=== PATIENT | female | born 1945 | race Caucasian/White ===

== ENCOUNTER 2017-06-16 05:51 | Day surgery (SDC) | payer MEDICARE, SELFPAY ==
[2017-06-16] VITALS (7 sets, daily range): BP systolic 119–139; BP diastolic 56–88; PULSE 73–85; RESP 16; TEMP 36.6–37.1; O2SAT 95–99; BMI 30.9
--- NOTE | 2017-06-16 08:01 | PCM.OPRPT ---
Problem List (1) Nausea and vomiting Status: Acute Qualifiers: Vomiting type: unspecified Vomiting Intractability: unspecified Qualified Code(s): R11.2 - Nausea with vomiting, unspecified (2) History of colonic polyps Status: Acute (3) Epigastric pain Status: Acute Report of Operation Date of Procedure: 06/16/17 Pre-Operative Diagnosis: r11.2 nausea and vomiting. Z86.010 personal history of colonic polyps. R10.13 epigastric abdominal pain Post-Operative Diagnosis: same Surgery/Procedure Performed:: 83283 esophagogastroduodenoscopy. 80500 colonoscopy Type of Anesthesia:: MAC Anesthesiologist: Geovany Leach Description of Procedure: Patient was brought into the endoscopy suite. Back of her throat was sprayed with Cetacaine spray. A bite-block was placed. She was placed in the left lateral decubitus position. She was given graded anesthesia. The scope was inserted in the back of the oropharynx and directed down through the esophagus into the stomach and into the duodenum without difficulty. Operative findings: 1. Duodenum: Normal appearance no mass lesions no ulcerations. 2. Stomach: Normal appearance no mass lesions no ulcerations mucosal all look normal. 3. Esophagus: Normal appearance no signs of Franz's esophagus she has a small hiatal hernia mucosal all look normal here. Colonoscope was inserted into the rectum. The scope was directed through the sigmoid colon, descending colon, transverse colon, ascending colon, to the cecum. She was given an amp of glucagon. Operative findings: 1. Cecum: Normal appearance no mass lesions normal ileocecal valve. 2. Ascending colon: Normal appearance no mass lesions. 3. Transverse colon: Normal appearance no mass lesions. 4. Descending colon: Normal appearance no mass lesions 5. Sigmoid colon: Normal appearance scattered diverticuli identified. 6. Rectum: Normal appearance no mass lesions retroflexion did show some internal hemorrhoids scope was withdrawn she had external hemorrhoids but no masses within her anus. She will need another colonoscopy in 10 years. With regards to her nausea vomiting she more likely will need to have a gastric emptying study to see if things are leaving the stomach appropriately. - Admit VTE Documentation VTE Present on Admission: No VTE Mechan Device Prophylaxis: None VTE Pharm Prophylaxis ordered?: No Reason prophylaxis not ordered:: Treatment Not Indicated
== END 2017-06-16 08:39 | disposition home or self-care (01) ==
LOC: EN 05:51 → AC 05:52
PROVIDERS: Family Provider Internal Medicine; PCP Internal Medicine; Visit Provider Surgery
PROC: 0DJD8ZZ Inspection of Lower Intestinal Tract, Via Natural or Artificial Opening Endoscopic (ICD-10-PCS; CPT 45378; principal; 2017-06-16 06:55)
DX: K44.9 Diaphragmatic hernia without obstruction or gangrene (principal); K57.30 Diverticulosis of large intestine without perforation or abscess without bleeding; K64.8 Other hemorrhoids; K64.4 Residual hemorrhoidal skin tags; Z86.010 Personal history of colon polyps; I10 Essential (primary) hypertension; M19.90 Unspecified osteoarthritis, unspecified site; F41.9 Anxiety disorder, unspecified; K21.9 Gastro-esophageal reflux disease without esophagitis; G43.909 Migraine, unspecified, not intractable, without status migrainosus; G25.81 Restless legs syndrome; D64.9 Anemia, unspecified; E78.00 Pure hypercholesterolemia, unspecified; Z87.19 Personal history of other diseases of the digestive system; Z90.49 Acquired absence of other specified parts of digestive tract; Z79.899 Other long term (current) drug therapy
CPT/HCPCS: 43235; 45378; J7120; J1610

== ENCOUNTER 2017-07-20 07:39 | Day surgery (SDC) | payer MEDICARE, SELFPAY ==
[2017-07-15 12:56] LABS: Hematocrit 40.3 % (37-47); Mean Corp Hgb Conc 32.3 g/gl (32-36); Mean Corpuscular Hgb 30.2 pg (27.0-32.0); Mean Corpuscular Volume 93.7 fL (81-99); Mean Platelet Vol. 9.3 fl (6.2-12.0); Platelet Count 306 K/mm3 (150-450); RBC Distribution Width CV 13.5 % (11.6-14.6); RBC Distribution Width SD 45.9 fl (35.1-43.9); White Blood Count 9.6 K/mm3 (4.4-11.0)
--- NOTE | 2017-07-15 12:57 | EKG12_ITS ---
Test Reason : PRE OP Blood Pressure : / mmHG Vent. Rate : 071 BPM Atrial Rate : 071 BPM P-R Int : 174 ms QRS Dur : 074 ms QT Int : 364 ms P-R-T Axes : 058 019 038 degrees QTc Int : 395 ms Normal sinus rhythm Possible Left atrial enlargement Low voltage QRS Borderline ECG Confirmed by KENAN WISE, KEYUR ([id number]), news videotape editor ESAU VALERA ([id number]) on 07/16/2017 1:49:19 PM Referred By: Robert Donohue Confirmed By:KEYUR GRAYSON MD
[2017-07-15 13:02] LABS: Scan Indicated on CBC? Y/N NO
[2017-07-15 13:18] LABS: Anion Gap 8 (5-15); BUN 26 mg/dL (7-18); BUN/Creat Ratio 29.9 RATIO (10-20); Calcium,Total 8.8 mg/dL (8.5-10.1); Chloride 104 mmol/L (98-107); Creatinine, Serum 0.87 mg/dL (0.55-1.02); EST Glomerular Filtration Rate 69 mL/min (>60); Est Glom Filt Rate - Afr Amer 83 mL/min (>60); Glucose 96 mg/dL (74-106); Potassium 4.2 mmol/L (3.5-5.1); Sodium Level 140 mmol/L (136-145)
[2017-07-20] VITALS (9 sets, daily range): BP systolic 126–151; BP diastolic 60–74; PULSE 69–80; RESP 16–18; TEMP 36.4–37.3; O2SAT 95–100; BMI 32.9
[2017-07-20] MEDS: Cefazolin 2 GM in 0.9% Normal Saline 100 ML IV (10:13)
== END 2017-07-20 12:26 | disposition home or self-care (01) ==
LOC: SDC 07:40 → AC 07:40
PROVIDERS: Physician Assistant; Family Provider Internal Medicine; PCP Internal Medicine; Visit Provider Orthopaedic Surgery
PROC: (CPT 64718; principal; 2017-07-20 09:00)
DX: G56.21 Lesion of ulnar nerve, right upper limb (principal); Z79.82 Long term (current) use of aspirin; Z79.899 Other long term (current) drug therapy; Z79.1 Long term (current) use of non-steroidal anti-inflammatories (NSAID); I49.9 Cardiac arrhythmia, unspecified; I10 Essential (primary) hypertension; G25.81 Restless legs syndrome; K21.9 Gastro-esophageal reflux disease without esophagitis; E78.00 Pure hypercholesterolemia, unspecified
CPT/HCPCS: 01710; 64718; 64727; 36415; 80048; 85027; 93005; J7120

== ENCOUNTER → 2017-11-09 07:17 | Outpatient (CLI) | payer MEDICARE, SELFPAY ==
--- NOTE | 2017-11-09 09:57 | NEURO ---
NCS and/or EMG Patient Report Ordering Doctor: Antoni Cunningham DATE OF SERVICE: 11/09/17 This is a right upper extremity EMG and nerve conduction study performed on this 72-year-old female who has paresthesias in the fifth digit of her right hand. She had a carpal tunnel release and ulnar release performed several months ago and her symptoms have not improved. Right upper extremity sensory and motor nerve conduction study is performed. The median motor and sensory distal latencies are mildly prolonged, improved compared to the study done 05/12/16. The ulnar motor and sensory responses are now normal compared to the previous study. The radial sensory responses are normal. Median and ulnar F-wave latencies are normal which again is improved compared to the previous study. Right upper extremity needle electromyography is performed. Muscles evaluated included the first dorsal interosseous, abductor pollicis brevis, abductor pollicis longus, brachioradialis, biceps, triceps and deltoid muscles. All muscles demonstrated normal insertional activity with absence of pathologic spontaneous activity. Motor unit potential recruitment pattern and amplitude is normal in all muscles tested. 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 The ulnar responses are now normal. There is no evidence of radiculopathy. These findings it is expected that that patient's symptoms will improve.
== END ==
PROVIDERS: Family Provider Internal Medicine; PCP Internal Medicine; Visit Provider Orthopaedic Surgery
DX: G56.21 Lesion of ulnar nerve, right upper limb (principal)
CPT/HCPCS: 95886; 95910

== ENCOUNTER 2018-06-03 21:28 | Observation (INO) | payer BC, MEDICARE, SELFPAY ==
[2018-06-03 21:28] VITALS: BP 107/57; PULSE 95; RESP 16; TEMP 36.9; O2SAT 95; BMI 29.8
--- NOTE | 2018-06-03 21:31 | EKG12_ITS ---
Test Reason : Blood Pressure : / mmHG Vent. Rate : 079 BPM Atrial Rate : 079 BPM P-R Int : 166 ms QRS Dur : 078 ms QT Int : 358 ms P-R-T Axes : 060 016 049 degrees QTc Int : 410 ms Normal sinus rhythm Possible Left atrial enlargement Low voltage QRS Borderline ECG Confirmed by KENAN WISE, KEYUR ([id number]), newspaper editor KAREN MON ([id number]) on 06/06/2018 1:54:28 PM Referred By: Tone Ho Confirmed By:KEYUR GRAYSON MD
[2018-06-03 23:20] VITALS: BP 162/73; PULSE 78; RESP 15; O2SAT 98
[2018-06-03 23:24] VITALS: O2SAT 99
[2018-06-03] MEDS: Aspirin 81 MG TAB.CHEW 324 MG PO (23:35)
--- NOTE | 2018-06-03 23:45 | RAD_ITS ---
STUDY: X-RAY CHEST REASON FOR EXAM: Female, 72 years old. Chest pain. TECHNIQUE: PA and lateral views of the chest. COMPARISON: June 23, 2015. FINDINGS: Cardiac monitoring leads are present. The lungs are clear and expanded. There is no demonstrated pleural abnormality. There is borderline cardiomegaly. Normal mediastinum and bartolome. Normal visualized pulmonary arteries. There is atherosclerotic tortuosity of the aortic arch and descending thoracic aorta. There are diffuse degenerative changes of the visualized thoracic spine. Normal visualized ribs, clavicles, and shoulders. There is no demonstrated abnormality of the visualized soft tissue structures of the upper abdomen. RAD/Chest PA and Lateral IMPRESSION: No radiographic evidence of acute cardiopulmonary disease. Electronically Signed: Amaris Thomas MD at 0:58 EDT , Service support ,
[2018-06-03 23:53] LABS: Absolute Lymphocyte Count 1.85 X10^3/ul (0.83-4.51); Absolute Neutrophil Count 5.1 X10^3/uL (2.0-7.7); Basophil# 0.01 X10^3/uL; Basophil% 0.1 % (0-1); Eosinophil# 0.05 X10^3/uL; Eosinophils% 0.6 % (0-5); Hematocrit 38.1 % (37-47); Hemoglobin 12.8 g/dl (12.0-15.0); Lymphocyte # 1.85 X10^3/ul (4.0); Lymphocyte % 23.4 % (19-41); Mean Corp Hgb Conc 33.6 g/gl (32-36); Mean Corpuscular Hgb 30.8 pg (27.0-32.0); Mean Corpuscular Volume 91.6 fL (81-99); Mean Platelet Vol. 9.4 fl (6.2-12.0); Monocyte# 0.85 X10^3/uL; Monocyte% 10.8 % (0-10); Neutrophil # 5.13 X10^3/uL (2.7-7.7); Platelet Count 270 K/mm3 (150-450); RBC Distribution Width CV 13.5 % (11.6-14.6); RBC Distribution Width SD 44.6 fl (35.1-43.9); Red Blood Count 4.16 M/mm3 (4.2-5.4); White Blood Count 7.9 K/mm3 (4.4-11.0)
[2018-06-04] VITALS (7 sets, daily range): BP systolic 99–174; BP diastolic 55–76; PULSE 62–74; RESP 17–19; TEMP 36.7–36.8; O2SAT 93–97; BMI 30.2; BMI 30.3
[2018-06-04 00:03] LABS: POSITIVE COUNT NO; POSITIVE DIFFERENTIAL NO; POSITIVE MORPHOLOGY NO
[2018-06-04 00:19] LABS: Anion Gap 5 (5-15); BUN 31 mg/dL (7-18); BUN/Creat Ratio 23.1 RATIO (10-20); Calcium,Total 8.8 mg/dL (8.5-10.1); Chloride 103 mmol/L (98-107); Creatinine, Serum 1.34 mg/dL (0.55-1.02); EST Glomerular Filtration Rate 42 mL/min (>60); Est Glom Filt Rate - Afr Amer 50 mL/min (>60); Glucose 93 mg/dL (74-106); Potassium 4.1 mmol/L (3.5-5.1); Sodium Level 137 mmol/L (136-145)
--- NOTE | 2018-06-04 01:20 | ED.DCSUM_ITS ---
- ER Visit Summary Date of Service: 06/04/18 Chief Complaint: Chest pain and shortness of breath History of Present Illness: The patient is a 72 F who presents with chest pain shortness of breath. She has had symptoms for about 2 weeks. She complains of intermittent chest pain which lasts a couple of minutes at a time. It is substernal. She is unable to describe the quality. She also has intermittent shortness of breath over the past 2 weeks. She complains of dizziness and lightheadedness which she describes as near syncope although she has not lost consciousness. She also reports nausea. No vomiting. No fevers. No infectious symptoms such as congestion runny nose sore throat or cough. There is a family history of coronary artery disease. Her brother at 72 from an [place] and she believes he was first diagnosed with heart disease at about 50. Her father also had heart disease. She has had a prior stress test but it has been greater than a year. She states she has not seen any physician in greater than a year. Physical Examination: Afebrile vitals normal Moist mucous membranes Heart regular rate and rhythm Lungs are clear Abdomen soft Extremities nontender no edema 2+ radial pulses Alert Test Results: EKG shows normal sinus rhythm at a rate of 79. Labs notable for BUN 31, creatinine 1.34. Troponin negative. Chest x-ray shows no acute process. Emergency Department Course and Treatment: Patient had no chest pain on arrival here. Workup as above. Negative cardiac enzymes. She was given aspirin. ROSARIO risk score is 2. Heart score is 5, which would suggest patient has a 12-16% chance of major adverse cardiac event, therefore admission is recommended. Patient was discussed with the hospitalist and admitted. Treatment Plan: [] Disposition: Admit Impression: Chest pain This note was generated with [employer] dictation software. It may contain incorrect words, spelling, and punctuation that were not noted in review of the chart prior to signing ED Disposition - Plan for ED Patient: Referrals: Lisa Tena DO [Primary Care Provider] -
--- NOTE | 2018-06-04 02:27 | HP.PCM_ITS ---
Problem List (1) Chest pain Status: Acute Qualifiers: Chest pain type: precordial pain Qualified Code(s): R07.2 - Precordial pain History of Present Illness Date of Admission: 06/04/18 Chief Complaint: Chest pain The patient is a 72 year old F who was seen in the emergency room at [facility] with a chief complaint of precordial chest pain which she described as pressure-like and dull in nature. The pain began this evening at 8 PM while she was showering, she stated it radiated in to her left arm and caused nausea and diaphoresis. Patient states she is actually been having this kind of chest discomfort off and on for the last 2 weeks but she had not sought medical attention. Patient denied any vomiting, she denied any cough, she denies any sputum production. Workup in the emergency room included labs which were remarkable for a creatinine of 1.34 and BUN of 31. Patient's CBC was unremarkable, patient had a normal troponin. Patient's chest x-ray was unremarkable, her EKG showed a normal sinus rhythm without evidence of ischemic changes. Patient will be placed in observation status on PCU, cardiac enzymes will be cycled, if these remained negative, patient will undergo a resting nuclear stress test later today. Past Medical History Past Medical History (Chronic Problems): Chronic Problems (Last Reviewed 06/09/17 @ 15:37 by Kelvin Decker MD) HTN (hypertension) (Chronic) Medical History: Medical History (Last Reviewed 06/09/17 @ 15:37 by Kelvin Decker MD) Radiculopathy affecting upper extremity (Resolved) M54.10 Upper arm pain (Resolved) M79.629 Nausea and vomiting (Resolved) R11.2 HTN (hypertension) (Chronic) I10 Throat mass R22.1 Allergies No Known Allergies Allergy (Verified 06/03/18 21:30) Home Medications: Ambulatory Orders Medication Instructions Recorded Iron Carbonyl [Feosol] 45 mg PO BID 06/23/15 Omeprazole 40 mg PO DAILY 06/23/15 Cholecalciferol (VIT D3) [Vitamin 1,000 unit PO DAILY 01/10/16 D] Losartan/Hydrochlorothiazide 1 tab PO DAILY 01/10/16 [Hyzaar 50-12.5 Tablet] Simvastatin [Zocor] 20 mg PO QHS 01/10/16 L.acidoph,Paracasei, B.lactis 1 each PO DAILY 06/11/17 [Probiotic] Meloxicam [Mobic] 15 mg PO DAILY 06/11/17 Oxycodone HCl/Acetaminophen 1 tablet PO TID 06/11/17 [Percocet 5/325] Aspirin E.C. [Ecotrin] 81 mg PO DAILY@0800 07/15/17 Gabapentin [Neurontin] 300 mg PO Q6H PRN 06/03/18 Surgical History: Surgical History (Last Reviewed 06/09/17 @ 15:37 by Kelvin Decker MD) H/O carpal tunnel repair Z98.890 bilat H/O colonoscopy Z98.890 H/O laparoscopy Z98.890 History of esophagogastroduodenoscopy (EGD) Z98.890 Previous back surgery Z98.890 S/P laparoscopic cholecystectomy Z90.49 Surgical History: cataract, cholecystectomy, - - Laparoscopy, ulnar nerve surgery, lumbar discectomy Psychiatric History: No pertinent psych hx JANITORIAL MANAGER History: No pertinent JANITORIAL MANAGER history Lives: Spouse/ Significant Other Smoking Status: Never smoker Tobacco Use: Non-smoker Alcohol: None Drugs: None - *Family History Maternal Family History: Family History (Last Reviewed 06/09/17 @ 15:37 by Kelvin Decker MD) Mother Breast cancer CAD (coronary artery disease) Hypertension Brother Heart disease Father Heart disease History Items: Cancer - Breast cancer, Hypertension Paternal Family History: Family History (Last Reviewed 06/09/17 @ 15:37 by Kelvin Decker MD) Mother Breast cancer CAD (coronary artery disease) Hypertension Brother Heart disease Father Heart disease History Items: Hypertension, Stroke Review of Systems Constitutional: Denies: Anorexia, Chills, Fever, Night Sweats, Weakness, Weight Change Eyes: Denies: Blurred vision, Cataracts, Conjunctivae Inflammation, Double vision, Drainage HEENT: Denies: Difficulty Swallowing, Dysphasia, Ear Pain, Eye Pain, Hearing Changes, Nasal bleeding, Nasal Congestion, Post Nasal Drip Cardiovascular: Reports: Chest Pain, Chest Pressure. Denies: Claudication, Chest Tightness, Edema, Heaviness, Light Headedness, Orthopnea, Palpitations, Paroxysmal Noc. Dyspnea, Syncope Respiratory: Denies: Cough, Hemoptysis, Pleuritic Pain, Shortness of Breath, Shortness of breath at rest, Shortness of breath upon exertion, Sputum production, Wheezing Gastrointestinal: Reports: Nausea. Denies: Abdominal Pain, Constipation, Diarrhea, Dyspepsia, Hematemesis, Hematochezia, Melena, Vomiting Genitourinary: Denies: Dysuria, Frequency, Hematuria, Hesitancy, Incontinence, Nocturia, Retention, Urgency Gynecological: Denies: Breast symptoms Musculoskeletal: Denies: Back Pain, Foot Pain, Hand Pain, Joint Pain, Joint stiffness, Joint swelling, Joint Tenderness, Leg Pain Skin: Denies: Dryness, Jaundice, Pruritis, Rash Neurological: Denies: Balance problems, Blurred vision, Double vision, Change in Speech, Slurred speech, Difficulty swallowing, Focal weakness, Headaches, Incoordination, Numbness, Tingling Psychiatric: Denies: Anxiety, Depression, Homicidal Ideations, Suicidal Ideations Endocrine: Denies: Change in Body Habitus, Heat/ Cold Intolerance, Polydipsia, Polyuria Hematologic/ Lymphatic: Denies: Adenopathy, Anemia, Easy Bruising, Easy B leeding, Petechiae, Purpura VTE Information - Inpt Only VTE Present on Admission: No VTE Mechan Device Prophylaxis: None VTE Pharm Prophylaxis ordered?: Yes Patient Problems: Active and Suspected Problems (Last Updated 06/04/18 @ 02:29 by Tone Ho DO) Chest pain (Acute) - Physical Exam General: Alert, Oriented x3, Cooperative, No apparent distress, Well developed, Well nourished HEENT: Atraumatic, PERRLA, EOMI, Normocephalic Oral: Moist Mucosa Neck: Supple, No JVD, Negative Carotid Bruits, No Nuchal Rigidity, Trachea Midline, Thyroid Normal Size and Texture Lungs: Clear to auscultation, Normal air movement, No rhonchi, No wheeze, No rales Cardiovascular: Regular rate, Regular Rhythm, Normal S1, Normal S2, No murmurs, No Ectopic Activity, PMI Normal, No rub noted, No Gallop Abdomen: Bowel Sounds Present, Soft, Non Tender, Non-Distended, No hernias noted Extremities: No clubbing, No cyanosis, No edema, Capillary Refill Less than 3 Seconds Skin: No rashes, No breakdown Neurological: Cranial nerves II-XII grossly intact, Neuro grossly intact, Sensory exam intact to light touch and pain, Coordination normal Psych/Mental Status: Normal Affect, Appropriate, Alert and oriented to time, place, person, mood and affect Vital Signs Temp Pulse Resp BP Pulse Ox 98.4 F 74 19 H 135/67 H 95 06/03/18 21:28 06/04/18 01:06 06/04/18 01:06 06/04/18 01:06 06/04/18 01:06 Oxygen Delivery Method Room Air Weight: 73.936 kg Body Mass Index (BMI) 29.8 Laboratory Tests Past 24 Hrs 06/03/18 06/03/18 23:44 23:44 WBC 7.9 RBC 4.16 L Hgb 12.8 Hct 38.1 MCV 91.6 MCH 30.8 MCHC 33.6 RDW 13.5 RDW Differential 44.6 H Plt Count 270 MPV 9.4 Immature Gran % (Auto) 0.100 Neut % (Auto) 65.0 Lymph % (Auto) 23.4 [place] % (Auto) 10.8 H Eos % (Auto) 0.6 Baso % (Auto) 0.1 Absolute Neuts (auto) 5.1 Absolute Lymphs (auto) 1.85 Total Counted Not Reportable Sodium 137 Potassium 4.1 Chloride 103 Carbon Dioxide 29.0 Anion Gap 5 BUN 31 H Creatinine 1.34 H Estim Creat Clear Calc 30.90 Est GFR (MDRD) Af Amer 50 L Est GFR (MDRD) Non-Af 42 L BUN/Creatinine Ratio 23.1 H Glucose 93 Calcium 8.8 Troponin I < 0.015 Assessment/Plan All Active Problems (Last Updated 06/04/18 @ 02:29 by Tone Ho, ) Epigastric pain (Resolved) Chest pain (Acute) Radiculopathy affecting upper extremity (Resolved) Upper arm pain (Resolved) Nausea and vomiting (Resolved) Duodenal erosion (Resolved) #1 precordial chest pain-etiology unclear, patient will be placed in observation status on PCU, cardiac enzymes will be cycled, if these remain negative patient will have a resting pharmacological nuclear stress test later on today. #2 hypertension #3 elevated creatinine-possibly elevated due to use of diuretics #4 osteoarthritis #5 hyperlipidemia Code Visit OBSV E&M: 57605 Initial observation care L3
--- NOTE | 2018-06-04 02:36 | EKG12_ITS ---
Test Reason : CP REPEAT Blood Pressure : / mmHG Vent. Rate : 067 BPM Atrial Rate : 067 BPM P-R Int : 196 ms QRS Dur : 088 ms QT Int : 402 ms P-R-T Axes : 060 015 037 degrees QTc Int : 424 ms Normal sinus rhythm Low voltage QRS Borderline ECG Confirmed by MARCE WISE, KARRI ([id number]), assignment editor ESAU VALERA ([id number]) on 06/23/2018 9:38:16 AM Referred By: Tone Ho Confirmed By:KARRI ZHENG MD
[2018-06-04] MEDS: 0.9% NaCl Peripheral Flush Adult/Peds IV ×3 (03:33→11:09)
[2018-06-04] MEDS: Morphine 2 MG/ML Syringe IV ×2 (03:33→10:46)
[2018-06-04 05:41] LABS: Hematocrit 36.3 % (37-47); Hemoglobin 11.9 g/dl (12.0-15.0); Mean Corp Hgb Conc 32.8 g/gl (32-36); Mean Corpuscular Hgb 30.1 pg (27.0-32.0); Mean Corpuscular Volume 91.7 fL (81-99); Mean Platelet Vol. 8.9 fl (6.2-12.0); Platelet Count 240 K/mm3 (150-450); RBC Distribution Width CV 13.5 % (11.6-14.6); RBC Distribution Width SD 44.9 fl (35.1-43.9); Red Blood Count 3.96 M/mm3 (4.2-5.4); White Blood Count 6.7 K/mm3 (4.4-11.0)
[2018-06-04 05:42] LABS: Scan Indicated on CBC? Y/N NO
[2018-06-04 05:48] LABS: Prothrombin Time (Protime)PT. 13.2 SECONDS (11.7-14.9)
[2018-06-04 05:49] LABS: Partial Thromboplast Time 43.8 Seconds (24.1-36.2)
[2018-06-04] MEDS: Losartan Potassium 50 MG Tablet PO (05:49)
[2018-06-04] MEDS: Aspirin E.C. 81 MG Tablet PO (05:49)
[2018-06-04 06:00] LABS: Anion Gap 6 (5-15); BUN 28 mg/dL (7-18); Calcium,Total 8.4 mg/dL (8.5-10.1); Chloride 107 mmol/L (98-107); Creatinine, Serum 1.12 mg/dL (0.55-1.02); EST Glomerular Filtration Rate 51 mL/min (>60); Est Glom Filt Rate - Afr Amer 62 mL/min (>60); Estimated Creatinine Clearance 36.97 ml/min; Glucose 93 mg/dL (74-106); Potassium 3.9 mmol/L (3.5-5.1); Sodium Level 140 mmol/L (136-145)
[2018-06-04] MEDS: Pantoprazole Sodium 40 MG Tablet PO (10:46)
[2018-06-04] MEDS: hydroCHLOROthiazide 12.5mg 12.5 MG PO (10:46)
[2018-06-04] MEDS: Ondansetron 4 MG/2 ML Vial IV (11:09)
--- NOTE | 2018-06-04 11:54 | STRESSREP ---
Stress Test Report Date: 06-04-18 Procedure: Pharmacologic stress nuclear imaging study Indications: Chest pain Consent: Per the patient Procedure: The patient underwent pharmacologic (Regadenoson) evaluation with a peak heart rate of 102 beats per minute (68 %predicted maximal heart rate) and a peak blood pressure of 160/82 mmHg. The baseline ECG demonstrated normal sinus rhythm. The peak pharmacologic ECG demonstrated no obvious ECG changes. There were no cardiac dysrhythmias pretest, during pharmacologic infusion, or recovery. There was no complaint of chest discomfort during pharmacologic infusion or recovery. The examination was discontinued secondary to completion of protocol. Impression: 1. Pharmacologic (Regadenoson) evaluation 2. Peak pharmacologic ECG with no obvious ECG changes. 3. There were no cardiac dysrhythmias pretest, during pharmacologic infusion, or recovery. 4. Nuclear images pending Myocardial perfusion imaging study: Technique: The patient was injected with 12.0 millicuries of technetium 99m Cardiolite and subsequently rest SPECT Cardiolite nuclear imaging was obtained in the horizontal long, vertical long, and short axis views. The patient underwent pharmacologic (Regadenoson) evaluation with a peak heart rate of 102 beats per minute (68 % percent predicted maximal heart rate) and a peak blood pressure of 160/82 mmHg. The patient was injected with 36.0 millicuries of technetium 99m Cardiolite and subsequently stress SPECT Cardiolite nuclear imaging was obtained in the horizontal long, vertical long, and short axis views. A gated Cardiolite study at peak stress was obtained. Interpretation: Rest and stress SPECT Cardiolite nuclear imaging status post realignment, normalization, and attenuation correction demonstrate relative uniform tracer uptake and myocardial perfusion appearing within normal limits. There is end systolic thickening and brightening. The gated Cardiolite study demonstrates myocardial thickening and inward wall motion. The reported LVEF is 79 %. Impression: 1. Rest and stress SPECT Cardiolite nuclear imaging demonstrate relative uniform tracer uptake and myocardial perfusion appearing within normal limits. 2. The gated Cardiolite study reports an LVEF of 79 %. This note was generated with [employer] software. It may contain incorrect words, spelling, and punctuation that were not noted in checking the note before signing.
[2018-06-04] MEDS: proMETHazine 25 MG/ML Syringe 6.25 MG IV (12:20)
--- NOTE | 2018-06-04 12:34 | DCINST_ITS ---
- Discharge Diagnoses Current Active Problems: Current Active and Chronic Problems (Last Updated 06/04/18 @ 02:29 by Tone Ho DO) Chest pain (Acute) You will use the following diet at home:: Cardiac Discharge Activity: Return to Normal Activity Call your doctor if you observe: Shortness of breath, Dizziness, Fainting spells, Chest pain Allergies/Adverse Reactions: Allergies No Known Allergies Allergy (Verified 06/03/18 21:30) Medications to take at Discharge Iron Carbonyl [Feosol] 45 mg PO BID 06/23/15 Omeprazole 40 mg PO DAILY 06/23/15 Cholecalciferol (VIT D3) [Vitamin D3] 1,000 unit PO BID 01/10/16 Losartan/Hydrochlorothiazide [Hyzaar 50-12.5 Tablet] 1 tab PO DAILY 01/10/16 Simvastatin [Zocor] 20 mg PO QHS 01/10/16 L.acidoph,Paracasei, B.lactis [Probiotic] 1 each PO DAILY 06/11/17 Meloxicam [Mobic] 15 mg PO DAILY 06/11/17 Oxycodone HCl/Acetaminophen [Percocet 5-325] 1 tablet PO TID 06/11/17 Aspirin E.C. [Ecotrin] 81 mg PO DAILY@0800 07/15/17 Gabapentin [Neurontin] 300 mg PO Q6H PRN 06/03/18 proMETHazine tablet [Phenergan tablet] 25 mg PO Q6H PRN PRN #15 tablet 06/04/18 The following prescriptions were given: proMETHazine tablet [Phenergan tablet] 25 mg PO Q6H PRN PRN #15 tablet PRN Reason: Nausea Primary Care Physician: Lisa Tena DO [Primary Care Provider] - Please follow up with your Primary Care Physician in: 3-5 days Test Results: Test results from this visit will be discussed in further detail at your follow- up appointment, if applicable. Please Follow Up With: Kelvin Decker MD When: 1 week, follow up regarding GI symptoms Proposed Discharge Date: 06/04/18
--- NOTE | 2018-06-04 12:39 | DS.PCM_ITS ---
Discharge Date and Diagnosis Date of Admission: 06/04/18 Date of Discharge: 06/04/18 - Primary Discharge Diagnosis Active and Suspected Problems (Last Updated 06/04/18 @ 02:29 by Tone Ho DO) 1. Musculoskeletal chest pain, ACS ruled out 2. Suspected viral gastroenteritis 3. Acute kidney injury, secondary to #2 4. Hyperlipidemia 5. Iron deficiency anemia 6. GERD 7. Hypertension - Secondary Discharge Diagnosis Chronic Problems (Last Updated 06/04/18 @ 02:29 by Tone Ho DO) HTN (hypertension) (Chronic) Hospital Course and Treatment Imaging Results: Diagnostic Data Chest X-Ray 06/03/18 23:45 IMPRESSION: No radiographic evidence of acute cardiopulmonary disease. Electronically Signed: Amaris Thomas MD at 0:58 EDT , Service support , Operations: None Procedures: Stress test Summary of Care Provided: The patient is a 72 year old F admitted 06/04/2018 due to chest pain. 1. Musculoskeletal chest pain, ACS ruled out-troponin negative. EKG without ST-T changes. Patient underwent stress test which was negative for ischemia. Pain reproducible. Suspect musculoskeletal related to recent nausea, vomiting. Follow-up with primary care physician in 3-5 days. 2. Suspected viral gastroenteritis-discharged with Phenergan as needed for nausea. Recommend follow-up with Dr. Decker who performed EGD last year and discussed gastric emptying study in the future. Recommend follow-up with Dr. Decker in 1 week given ongoing GI complaints. 3. Acute kidney injury-secondary to #2. Improved with IV fluids. Recommend repeat BMP in 1 week as outpatient by primary care physician. 4. Hyperlipidemia-continue statin. 5. Iron deficiency anemia-continue iron supplement patient. 6. GERD-continue PPI. 7. Hypertension-stable, continue home losartan/HCTZ regimen. Patient seen and examined prior to discharge. Physical assessment as noted below. Patient is stable for discharge with follow up recommendations as noted above. This patient was seen by PARRISH Mosquera under the supervision of Dr. Massey. - Physical Exam General: Alert, Oriented x3, Cooperative HEENT: Atraumatic, PERRLA, EOMI, Normocephalic Neck: Supple, No JVD, Negative Carotid Bruits Lungs: Clear to auscultation, Normal air movement Cardiovascular: Regular rate, Regular Rhythm, Normal S1, Normal S2, No murmurs Abdomen: Bowel Sounds Present, Soft, Non Tender, Non-Distended Extremities: No clubbing, No cyanosis, No edema, Capillary Refill Less than 3 Seconds Skin: No rashes, No breakdown Musculoskeletal: No Tenderness to Palpation of Joints or Extremities Neurological: Cranial nerves II-XII grossly intact, Neuro grossly intact Psych/Mental Status: Normal Affect, Appropriate Vital Signs Temp Pulse Resp BP Pulse Ox 98.2 F 73 18 174/68 H 97 06/04/18 10:38 06/04/18 10:38 06/04/18 10:38 06/04/18 10:38 06/04/18 10:38 Oxygen Delivery Method Room Air Weight: 165 lb 9.074 oz Body Mass Index (BMI) 30.2 Intake and Output for Last 24 Hours 06/02/18 06/03/18 06/04/18 23:59 23:59 23:59 Intake Total 550 / 550 Balance 550 / 550 Laboratory Tests Past 24 Hrs 06/03/18 06/03/18 06/04/18 23:44 23:44 03:15 WBC 7.9 RBC 4.16 L Hgb 12.8 Hct 38.1 MCV 91.6 MCH 30.8 MCHC 33.6 RDW 13.5 RDW Differential 44.6 H Plt Count 270 MPV 9.4 Immature Gran % (Auto) 0.100 Neut % (Auto) 65.0 Lymph % (Auto) 23.4 [place] % (Auto) 10.8 H Eos % (Auto) 0.6 Baso % (Auto) 0.1 Absolute Neuts (auto) 5.1 Absolute Lymphs (auto) 1.85 Total Counted Not Reportable PT INR APTT Sodium 137 Potassium 4.1 Chloride 103 Carbon Dioxide 29.0 Anion Gap 5 BUN 31 H Creatinine 1.34 H Estim Creat Clear Calc 30.90 Est GFR (MDRD) Af Amer 50 L Est GFR (MDRD) Non-Af 42 L BUN/Creatinine Ratio 23.1 H Glucose 93 Calcium 8.8 Troponin I < 0.015 < 0.015 06/04/18 06/04/18 06/04/18 05:34 05:34 05:34 WBC 6.7 RBC 3.96 L Hgb 11.9 L Hct 36.3 L MCV 91.7 MCH 30.1 MCHC 32.8 RDW 13.5 RDW Differential 44.9 H Plt Count 240 MPV 8.9 Immature Gran % (Auto) Neut % (Auto) Lymph % (Auto) [place] % (Auto) Eos % (Auto) Baso % (Auto) Absolute Neuts (auto) Absolute Lymphs (auto) Total Counted PT 13.2 INR 1.0 APTT 43.8 H Sodium 140 Potassium 3.9 Chloride 107 Carbon Dioxide 27.0 Anion Gap 6 BUN 28 H Creatinine 1.12 H Estim Creat Clear Calc 36.97 Est GFR (MDRD) Af Amer 62 Est GFR (MDRD) Non-Af 51 L BUN/Creatinine Ratio 25.0 H Glucose 93 Calcium 8.4 L Troponin I < 0.015 Discharge Diet: Low fat/ Low Cholesterol Discharge Activity: Return to Normal Activity Call your doctor if you observe: Shortness of breath, Dizziness, Fainting spells, Chest pain Home Medications: Medications to take at Discharge Iron Carbonyl [Feosol] 45 mg PO BID 06/23/15 Omeprazole 40 mg PO DAILY 06/23/15 Cholecalciferol (VIT D3) [Vitamin D3] 1,000 unit PO BID 01/10/16 Losartan/Hydrochlorothiazide [Hyzaar 50-12.5 Tablet] 1 tab PO DAILY 01/10/16 Simvastatin [Zocor] 20 mg PO QHS 01/10/16 L.acidoph,Paracasei, B.lactis [Probiotic] 1 each PO DAILY 06/11/17 Meloxicam [Mobic] 15 mg PO DAILY 06/11/17 Oxycodone HCl/Acetaminophen [Percocet 5-325] 1 tablet PO TID 06/11/17 Aspirin E.C. [Ecotrin] 81 mg PO DAILY@0800 07/15/17 Gabapentin [Neurontin] 300 mg PO Q6H PRN 06/03/18 proMETHazine tablet [Phenergan tablet] 25 mg PO Q6H PRN PRN #15 tablet 06/04/18 Following Prescrptions Were Given to Patient: proMETHazine tablet [Phenergan tablet] 25 mg PO Q6H PRN PRN #15 tablet PRN Reason: Nausea Primary Care Physician: Lisa Tena DO [Primary Care Provider] - Please follow up with your Primary Care Physician in: 3-5 days Please Follow Up With: Kelvin Decker MD When: 1 week, follow up regarding GI symptoms Disposition: Home Minutes spent on discharge:: 35 Patient Condition:: Stable Medical Necessity - Tobacco Use Smoking Status: Never smoker Tobacco Use: Non-smoker Meaningful Use Info Meaningful Use Diagnoses (Choose all that apply): None applicable
== END 2018-06-04 12:33 | disposition home or self-care (01) ==
LOC: ED 23:07 → PCU 06-04 01:34
PROVIDERS: Admitting Provider Internal Medicine; Emergency Provider Emergency Medicine; Family Provider Internal Medicine; PCP Internal Medicine; Referring Provider Internal Medicine; Visit Provider Family Medicine
DX: R07.89 Other chest pain (principal); I10 Essential (primary) hypertension; D50.9 Iron deficiency anemia, unspecified; E78.5 Hyperlipidemia, unspecified; K21.9 Gastro-esophageal reflux disease without esophagitis; R06.02 Shortness of breath; Z79.899 Other long term (current) drug therapy; Z79.82 Long term (current) use of aspirin; R42 Dizziness and giddiness; Z82.49 Family history of ischemic heart disease and other diseases of the circulatory system; M19.90 Unspecified osteoarthritis, unspecified site; G89.4 Chronic pain syndrome; Z79.1 Long term (current) use of non-steroidal anti-inflammatories (NSAID); G62.9 Polyneuropathy, unspecified; N17.9 Acute kidney failure, unspecified
CPT/HCPCS: 36415; 71046; 78452; 80048; 84484; 85025; 85027; 85610; 85730; 93005; 93017; 96374; 96375; 96376; 99218; 99284; A9500; A4216; G0378; J2405; J2785

== ENCOUNTER 2018-06-27 05:50 | Day surgery (SDC) | payer BC, MEDICARE, SELFPAY ==
[2018-06-08 15:02] VITALS: BMI 30.2
[2018-06-27 06:19] VITALS: BP 156/66; PULSE 65; RESP 16; TEMP 36.1; O2SAT 100; BMI 29.9
--- NOTE | 2018-06-27 07:00 | IMM_PTH ---
PATIENT: ALY MIDDLETON LOC: EN U#:[id number] AGE/SX: 72/F ROOM: RE06/27/[address]: Dr. Kelvin Decker MD : 1945 BED: DIS: 06/27/2018 SPEC #: [id number] RECD: 06/27/18 12:23 STATUS: EDITA REKatharine #: [id number] KATHIE: 06/27/18 07:[address]: Kelvin Decker DEPT: IMMUNOHISTOCHEMISTRY RECD BY: Mary Nieves ENTERED: 06/27/18 12:24 SP TYPE: IMMUNO OTHR DR: Dr. Lisa Tena DO Tissues: B - Stomach, NOS Procedures: H Pylori (initial) PHYSICIAN & INSTITUTION [place] [id number] SPECIMEN INFORMATION: Tissue Source: B - Antral biopsy Clinical Info: Alfred, tarfloyd stools Specimen Number: [id number] CPT code: 11055 METHODOLOGY: Deparaffinized sections of prefer/formalin-fixed tissue or PAP/DQ stained slides are incubated with monoclonal/polyclonal antibodies/oligonucleotide probes. Localization is made via biotin free immunoperoxidase method. Appropriate controls are performed and reacted as expected. Results on target cell population are indicated in the following table: RESULTS: ANTIBODY / CLONE RESULT Block B H Pylori (polyclonal) negative These tests were developed and their performance characteristics determined by [facility]. They may not have been cleared or approved by the U.S. Food and Drug Administration. The FDA has determined that such clearance or approval is not necessary. INTERPRETATION: B. Antral biopsy: Negative for Helicobacter pylori organisms. AM:yoni 06/28/18
--- NOTE | 2018-06-27 07:00 | EGD_PTH ---
PATIENT: ALY MIDDLETON LOC: EN U#:[id number] AGE/SX: 72/F ROOM: RE06/27/[address]: Dr. Kelvin Decker MD : 1945 BED: DIS: 06/27/2018 SPEC #: [id number] RECD: 06/27/18 09:28 STATUS: EDITA FRANKY #: [id number] KATHIE: 06/27/18 07:[address]: Kelvin Decker DEPT: SURGICAL PATHOLOGY RECD BY: Ranjith Rosado ENTERED: 06/27/18 11:17 SP TYPE: EGD BIOPSY CORINNE DR: Dr. Lisa Tena DO Tissues: A - Duodenum, NOS B - Gastric mucous membrane C - Gastric mucous membrane Procedures: Surgery Specimen Level IV HEADER OPERATION: EGD ([facility] [place]) PRE-OP DIAGNOSIS: Black, tarry stools; GERD TISSUE SUBMITTED: A - Duodenal biopsy, B - Antral biopsy for H. pylori and pathology, C - Fundic gland polyp biopsy MICROSCOPIC DIAGNOSIS A. Duodenum, biopsy: Minimal nonspecific chronic inflammation. B. Gastric antrum, biopsy: Chronic gastritis. C. Gastric fundus, biopsy: Fundic gland polyp. AM:yoni 06/28/18 COMMENT B. The results of immunohistochemistry for Helicobacter pylori will be reported separately ([id number]). MICROSCOPIC DESCRIPTION Slides are reviewed. GROSS DESCRIPTION A - Received in fixative is one container labeled with the patient's name and designated duodenal biopsy. The specimen consists of one irregular fragment of light pozo soft tissue that measures 0.5 x 0.3 x 0.1 cm. The specimen is totally submitted in one cassette. B - Received in fixative is one container labeled with the patient's name and designated antral biopsy. The specimen consists of one irregular fragment of light pozo soft tissue that measures 0.3 x 0.3 x 0.1 cm. The specimen is totally submitted in one cassette. C - Received in fixative is one container labeled with the patient's name and designated fundic gland polyp biopsy. The specimen consists of one irregular fragment of light pozo soft tissue that measures 0.3 x 0.2 x 0.1 cm. The specimen is totally submitted in one cassette. / FLYNN:yoni 06/27/18 TC:3 CPT: 92029 x3
[2018-06-27 07:16] VITALS: BP 135/60; BP 156/66; PULSE 64; RESP 16; TEMP 36.5; O2SAT 98
[2018-06-27 07:20] VITALS: BP 116/82; BP 156/66; PULSE 64; RESP 16; O2SAT 98
--- NOTE | 2018-06-27 07:21 | OP.ENDO_ITS ---
06/27/2018 Lisa Tena [address] [place] [address] Re : Upper GI endoscopy procedure for Karen Lucero Dear Dr. Tena This procedure was performed on Wednesday, June 27, 2018. My impressions and recommendations are as follows: Impressions : - Small hiatal hernia. - Non-bleeding gastric ulcer with no stigmata of bleeding. Biopsied. - Normal examined duodenum. Biopsied. Recommendations : - Await pathology results. - Repeat upper endoscopy in 3 months to evaluate the response to therapy. - Return to my office in 1 week. - Continue present medications. My findings are described in the full procedure note, which is enclosed. If I can be of further assistance, please feel free to contact me at Doctor phone number(s): , Fax: [phone], Work: . Sincerely, MD Kelvin Olea MD 06/27/2018 7:20:46 AM This report has been signed electronically.
[2018-06-27 07:25] VITALS: BP 128/61; BP 156/66; PULSE 64; RESP 16; O2SAT 97
[2018-06-27 07:31] VITALS: BP 128/66; BP 156/66; PULSE 57; RESP 16; TEMP 36.4; O2SAT 96
[2018-06-27 07:52] VITALS: BP 156/66
== END 2018-06-27 07:56 | disposition home or self-care (01) ==
LOC: EN 05:50 → AC 05:52
PROVIDERS: Family Provider Internal Medicine; PCP Internal Medicine; Referring Provider Surgery; Visit Provider Surgery
PROC: 0DJ08ZZ Inspection of Upper Intestinal Tract, Via Natural or Artificial Opening Endoscopic (ICD-10-PCS; CPT 43235; principal; 2018-06-27 06:55)
DX: K25.9 Gastric ulcer, unspecified as acute or chronic, without hemorrhage or perforation (principal); K29.50 Unspecified chronic gastritis without bleeding; K44.9 Diaphragmatic hernia without obstruction or gangrene; K21.9 Gastro-esophageal reflux disease without esophagitis; K31.7 Polyp of stomach and duodenum; K92.1 Melena; I10 Essential (primary) hypertension; M19.90 Unspecified osteoarthritis, unspecified site; F41.9 Anxiety disorder, unspecified; F32.9 Major depressive disorder, single episode, unspecified; G43.909 Migraine, unspecified, not intractable, without status migrainosus; K58.9 Irritable bowel syndrome, unspecified; D64.9 Anemia, unspecified; E78.00 Pure hypercholesterolemia, unspecified; Z78.0 Asymptomatic menopausal state; Z87.19 Personal history of other diseases of the digestive system; Z90.49 Acquired absence of other specified parts of digestive tract; Z79.82 Long term (current) use of aspirin; Z79.899 Other long term (current) drug therapy
CPT/HCPCS: 43239; 88305; 88342; J7120; J2405

== ENCOUNTER → 2019-01-17 14:43 | Outpatient (CLI) | payer BC, MEDICARE, SELFPAY ==
--- NOTE | 2019-01-17 14:44 | RAD_ITS ---
STUDY: X-RAY - LUMBAR SPINE REASON FOR EXAM: Female, 73 years old. Pain TECHNIQUE: 4 view(s) of the lumbar spine were obtained. COMPARISON: None FINDINGS: Normal lumbar lordosis. There is minimal levoscoliosis. There is a normal alignment of the vertebrae. Degenerative changes of the vertebral bodies. Mild degenerative spurring at the endplates. Narrowed disc space heights. Limited flexion and extension. The soft tissue structures are unremarkable. RAD/L/S Spine Min 4 Views IMPRESSION: Degenerative changes with limited flexion and extension of the lumbar spine. Electronically Signed: Hans Delgado DO at 23:12 EST Tel [phone], Service support ,
== END ==
PROVIDERS: Family Provider Internal Medicine; PCP Internal Medicine; Referring Provider Orthopaedic Surgery; Visit Provider Orthopaedic Surgery
DX: M54.5 Low back pain (principal)
CPT/HCPCS: 72110

== ENCOUNTER → 2019-03-21 16:43 | Outpatient (CLI) | payer BC, MEDICARE, SELFPAY ==
[2019-03-21 18:06] LABS: Absolute Lymphocyte Count 1.83 X10^3/uL (0.83-4.51); Absolute Neutrophil Count 4.8 X10^3/uL (2.0-7.7); Basophil# 0.03 X10^3/uL; Basophil% 0.4 % (0-1); Eosinophil# 0.13 X10^3/uL; Eosinophils% 1.7 % (0-5); Hematocrit 38.2 % (37-47); Hemoglobin 12.3 g/dL (12.0-15.0); Lymphocyte # 1.83 X10^3/ul (4.0); Lymphocyte % 24.6 % (19-41); Mean Corp Hgb Conc 32.2 g/dL (32-36); Mean Corpuscular Hgb 30.6 pg (27.0-32.0); Mean Platelet Vol. 9.9 fl (6.2-12.0); Monocyte# 0.69 X10^3/uL; Monocyte% 9.3 % (0-10); NRBC Flagged by Analyzer 0 % (0-5); Neutrophil # 4.75 X10^3/uL (2.7-7.7); Neutrophil % 63.7 % (47-70); Platelet Count 285 K/mm3 (150-450); RBC Distribution Width CV 13.2 % (11.6-14.6); RBC Distribution Width SD 46.5 fl (35.1-43.9); Red Blood Count 4.02 M/mm3 (4.2-5.4); White Blood Count 7.5 K/mm3 (4.4-11.0)
[2019-03-21 18:15] LABS: International Normalized Ratio 0.9; Prothrombin Time (Protime)PT. 12.4 SECONDS (11.7-14.9)
[2019-03-21 18:24] LABS: Vitamin D,25 Hydroxy 24.1 ng/mL (29.95-100.01)
[2019-03-21 18:44] LABS: Hemoglobin A1c 6.2 % (4.2-6.3)
[2019-03-21 19:12] LABS: ALB/GLOB Ratio 1.1 RATIO (0.9-2.4); AST(SGOT) 13 U/L (15-37); Alanine Aminotransfer ALT/SGPT 16 U/L (13-56); Albumin, Serum 3.7 g/dL (3.2-5.0); Alkaline Phosphatase 60 U/L (45-117); Anion Gap 3 (5-15); BUN 28 mg/dL (7-18); BUN/Creat Ratio 23.3 RATIO (10-20); Calcium,Total 8.9 mg/dL (8.5-10.1); Chloride 102 mmol/L (98-107); EST Glomerular Filtration Rate 47 mL/min (>60); Est Glom Filt Rate - Afr Amer 57 mL/min (>60); Globulin 3.5 g/dL (2.2-4.2); Glucose 102 mg/dL (74-106); Potassium 4.1 mmol/L (3.5-5.1); Protein, Total 7.2 g/dL (6.4-8.2); Sodium Level 136 mmol/L (136-145)
== END ==
PROVIDERS: Family Provider Internal Medicine; PCP Internal Medicine
DX: M54.16 Radiculopathy, lumbar region (principal); R79.1 Abnormal coagulation profile; M43.10 Spondylolisthesis, site unspecified; M94.9 Disorder of cartilage, unspecified; R79.9 Abnormal finding of blood chemistry, unspecified
CPT/HCPCS: 36415; 80053; 82306; 83036; 84134; 85025; 85610

== ENCOUNTER → 2019-04-05 09:17 | Outpatient (CLI) | payer BC, MEDICARE, SELFPAY ==
--- NOTE | 2019-04-05 09:25 | BD_ITS ---
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 COMPARISON: Comparison is made with prior study dated November 28, 2015. FINDINGS: Lumbar Spine (L1-L4): g/cm2 (1.354) / T-score (1.5) / Z-score (3.2) Findings are suggestive of normal bone density with a low fracture risk. Left Femur Total: g/cm2 (0.927) / T-score (-0.6) / Z-score (0.9) Left Femoral Neck: g/cm2 (0.905) / T-score (-1.0) / Z-score (0.8) Right Femur Total: g/cm2 (0.960) / T-score (-0.4) / Z-score (1.2) Right Femoral Neck: g/cm2 (0.908) / T-score (-0.9) / Z-score (0.8) The T-Scores on the most recent prior examination were: Lumbar Spine (L1-L4): There has been worsening of bone density since the previous examination. Left Femur Total: which represents a worsening of 7.2%. Right Femur Total: which represents a worsening of 4.7%. BD/Dexa Bone Density Study IMPRESSION: The patient is considered normal as outlined below according to World Pablo Organization (WHO) criteria with a low fracture risk. There has been worsening of bone density since the previous examination. Reference Information: The T-score is the number of standard deviations above or below the standard which is normal for young adults at their peak bone mineral density. The World Health Organization (WHO) interprets the T-scores as follows: Above -1 Normal bone density Between -1 and -2.5 Osteopenia Equal to / or below -2.5 Osteoporosis As a practical clinical guideline, osteopenia may be graded as follows: Mild -1 through -1.5 Moderate -1.6 through -2.0 Severe -2.1 through -2.4 The Z-score is the number of standard deviations above or below age-matched controls. A Z-score of less than -1.5 would be considered abnormal. References: 1. NIH Osteoporosis and Related Bone Diseases http://www.osteo.org 2. International Society for Clinical Densitometry http://www.iscd.org 3. National Osteoporosis Foundation http://www.nof.org Electronically Signed: Brent Strickland, at 12:58 EST , Service support ,
--- NOTE | 2019-04-05 09:26 | BI_ITS ---
MAMMOGRAPHY - BILATERAL SCREENING REASON FOR EXAM: Female, 73 years old. Routine annual screening examination. PERTINENT HISTORY: Mother with breast cancer. TECHNIQUE: Digital bilateral breast mile (3D mammographic acquisition) in the CC and MLO projections. 2-D mediolateral oblique (MLO) and craniocaudad (CC) views of both breasts were obtained. CAD: Full Field Digital Mammography with Computer Added Detection was performed. COMPARISON: Comparison is made with prior study November 28, 2015 and February 25, 2017. FINDINGS: Breast Composition: The breasts are almost entirely fatty. There are no dominant masses or suspicious calcifications. Stable small benign-appearing bilateral axillary lymph nodes. No other significant abnormalities are identified. There has been no significant change since the prior study. BI/SCREEN MAMM (CAD) W/MILE BILAT IMPRESSION: Stable bilateral screening mammogram. Yearly follow-up mammogram recommended. (A) ASSESSMENT CATEGORY: BIRADS Category 2: Benign. A letter regarding these results will be sent to the patient by the facility within 30 days. Approximately 10% of breast cancers are not detected by mammography. A normal mammogram should not delay biopsy of a clinically suspicious abnormality. [id number] Electronically Signed: Brent Strickland, at 12:56 EST , Service support ,
== END ==
PROVIDERS: Family Provider Internal Medicine; PCP Internal Medicine; Visit Provider Internal Medicine
DX: Z12.31 Encounter for screening mammogram for malignant neoplasm of breast (principal); Z78.0 Asymptomatic menopausal state
CPT/HCPCS: 77063; 77067; 77080

== ENCOUNTER → 2019-05-10 14:04 | Outpatient (CLI) | payer BC, MEDICARE, SELFPAY ==
--- NOTE | 2019-05-10 14:18 | RAD_ITS ---
STUDY: X-RAY - LEFT KNEE REASON FOR EXAM: Female, 73 years old. Left knee pain for several months; NK TECHNIQUE: 4 view(s) of the knee, 3 labeled as upright. COMPARISON: 4 views of the left knee March 02, 2013. FINDINGS: Normal visualized distal femur. Normal visualized proximal tibia and fibula. Normal patella. There is no demonstrated destructive osseous lesion or acute fracture. Normal medial femorotibial compartment. Normal lateral femorotibial compartment. Normal patellofemoral articulation. Normal proximal tibiofibular articulation. The suprapatellar region is not fully included in the [id number] on the lateral image, but a small joint effusion is suggested. The soft tissue structures are unremarkable. RAD/Knee 4 or More Views IMPRESSION: Small suprapatellar joint effusion suggested, otherwise normal x-ray examination of the left knee. Electronically Signed: Francesco Rizvi MD at 20:07 EST , Service support ,
== END ==
PROVIDERS: PCP Internal Medicine; Referring Provider Anesthesiology Pain Medicine; Visit Provider Anesthesiology Pain Medicine
DX: M25.562 Pain in left knee (principal)
CPT/HCPCS: 73564

== ENCOUNTER → 2019-08-30 13:21 | Outpatient (CLI) | payer BC, MEDICARE, SELFPAY ==
[2019-08-30 14:03] LABS: Amphetamine Urine VISTA NEGATIVE (<1000 ng/mL); Barbiturate Urine VISTA NEGATIVE (< 200 ng/mL); Benzodiazepine Urine VISTA NEGATIVE (< 200 ng/mL); Cocaine Urine VISTA NEGATIVE (< 300 ng/mL); Ecstacy Urine VISTA NEGATIVE (< 500 ng/mL); Methadone Urine VISTA NEGATIVE (< 300 ng/mL); PCP Urine VISTA NEGATIVE (< 25 ng/mL); THC Urine VISTA NEGATIVE (< 50 ng/mL); Vista UDS pH Range 6
== END ==
PROVIDERS: PCP Internal Medicine; Referring Provider Anesthesiology Pain Medicine; Visit Provider Anesthesiology Pain Medicine
DX: F11.20 Opioid dependence, uncomplicated (principal)
CPT/HCPCS: 80307

== ENCOUNTER → 2020-05-08 14:05 | Outpatient (CLI) | payer OTHER, MEDICARE, SELFPAY ==
[2020-05-08 14:51] LABS: Amphetamine Urine VISTA NEGATIVE (<1000 ng/mL); Barbiturate Urine VISTA NEGATIVE (< 200 ng/mL); Benzodiazepine Urine VISTA NEGATIVE (< 200 ng/mL); Cocaine Urine VISTA NEGATIVE (< 300 ng/mL); Ecstacy Urine VISTA NEGATIVE (< 500 ng/mL); Methadone Urine VISTA NEGATIVE (< 300 ng/mL); PCP Urine VISTA NEGATIVE (< 25 ng/mL); THC Urine VISTA NEGATIVE (< 50 ng/mL); Vista UDS pH Range 5
== END ==
PROVIDERS: PCP Internal Medicine; Visit Provider Anesthesiology Pain Medicine
DX: F11.20 Opioid dependence, uncomplicated (principal)
CPT/HCPCS: 80307

== ENCOUNTER → 2021-01-23 15:58 | Outpatient (CLI) | payer OTHER, MEDICARE, SELFPAY ==
--- NOTE | 2021-01-23 16:08 | CT_ITS ---
STUDY: CT SOFT TISSUE NECK WITH CONTRAST REASON FOR EXAM: Female, 75 years old. Neck mass. RADIATION DOSAGE (If Supplied By Facility): CTDIvol = ( 17.50 ) mGy, DLP = ( 441.41 ) mGycm TECHNIQUE: The patient was scanned in a multi-detector CT scanner. High resolution transaxial imaging was performed following intravenous administration of IV 75mL Isovue-370. Sagittal and coronal images were reconstructed. Individualized dose optimization techniques were used for this CT. COMPARISON: 08/13/2015. FINDINGS: Normal bilateral parotid glands. Normal bilateral fund manager spaces. Normal bilateral parapharyngeal spaces. Normal bilateral carotid spaces. Normal bilateral sublingual and submandibular glands and spaces. Normal visualized nasopharynx. Normal retropharyngeal space. Normal perivertebral space. There is prominent in the region of the right tonsil and parapharyngeal soft tissues. Downward to include the right base of the tongue level of the hyoid bone. The visualized tongue appears otherwise normal. There is no demonstrable narrowing of the oropharynx The visualized cervical lymph nodes (levels I-) are within normal size limits, and maintain normal morphology. There is no demonstrated solid or cystic mass lesion. There is no abnormal contrast enhancement. Normal epiglottis and hypopharynx. There is slight narrowing of the right vallecula is soft tissue density. The left is normal. Mild soft tissue swelling of the right para glottic soft tissues with obscuration of the right piriform sinus. The fatty hypopharyngeal mass seen on the previous study is decreased in size, now measuring 1.7 x 1.8 x 0.7 cm. Normal visualized left piriform sinuses, aryepiglottic folds, vocal cords, and arytenoid-cricoid articulations. Normal subglottic trachea. Normal bilateral lobes of the thyroid gland. Normal visualized pulmonary apices. Normal visualized paranasal sinuses. Stable degenerative changes of the cervical spine. this previously measured 2.6 x 1.[address]/Soft Tissue Neck WITH Contrast IMPRESSION: Mild prominence of the right tonsil. Epiglottic and hypopharyngeal soft tissues with slight impingement on the right vallecula and pyriform sinus. 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 Electronically Signed: Miguel Oshea DO at 17:19 EST Tel [phone], Service support ,
[2021-01-23 16:15] LABS: CREATININE FINGERSTICK 1.2 mg/dL (0.55-1.02)
== END ==
PROVIDERS: PCP Internal Medicine; Referring Provider Internal Medicine; Visit Provider Internal Medicine
DX: R93.89 Abnormal findings on diagnostic imaging of other specified body structures (principal); R22.1 Localized swelling, mass and lump, neck
CPT/HCPCS: 70491; Q9967

== ENCOUNTER 2021-03-19 10:43 | Outpatient (CLI) | payer BC, MEDICARE, SELFPAY ==
--- NOTE | 2021-03-19 10:48 | US_ITS ---
STUDY: ABDOMINAL ULTRASOUND - RIGHT UPPER QUADRANT REASON FOR VISIT: Female, 75 years old ABN LABS TECHNIQUE: Ultrasound evaluation of the right upper quadrant was performed with real-time and static glover-scale imaging. TECHNICAL QUALITY: Adequate. COMPARISON: Comparison is made with prior examination dated 10/22/2011. FINDINGS: Liver: The liver measures 16.6 cm. There is increased echogenicity consistent with fatty infiltration. The bile ducts are within normal limits. There is hepatic color flow. The direction of portal flow is hepatopetal. There is no demonstrated mass lesion. Gallbladder: The patient is status post cholecystectomy. Common Bile Duct (C.B.D.): The common bile duct measures 4 mm. Pancreas: Normal size of the head, body and tail of the pancreas. There is increased echogenicity of the pancreas. There is no demonstrated pancreatic mass or cyst. Right Kidney: Normal size of the right kidney. The right kidney measures 8.4 cm x 5 cm x 5.3 cm. Normal renal cortex. The right cortex measures 1.1 cm. There is a 1.1 cm x 1.1 cm x 0.8 cm cyst in the upper pole. There is no right hydronephrosis. US/Liver IMPRESSION: Fatty infiltration of the liver. The patient is status post cholecystectomy. Small right renal cyst. Electronically Signed: Brent Strickland MD at 14:47 EST , Service support ,
== END 2021-03-19 23:59 | disposition short-term general hospital (02) ==
PROVIDERS: PCP Internal Medicine; Referring Provider Internal Medicine; Visit Provider Internal Medicine
DX: R89.9 Unspecified abnormal finding in specimens from other organs, systems and tissues (principal)
CPT/HCPCS: 76705

== ENCOUNTER → 2021-07-30 | Outpatient (CLI) | payer BC, MEDICARE, SELFPAY ==
[2021-07-30 18:14] LABS: Amphetamine Urine VISTA NEGATIVE (<1000 ng/mL); Barbiturate Urine VISTA NEGATIVE (< 200 ng/mL); Benzodiazepine Urine VISTA NEGATIVE (< 200 ng/mL); Cocaine Urine VISTA NEGATIVE (< 300 ng/mL); Ecstacy Urine VISTA NEGATIVE (< 500 ng/mL); Methadone Urine VISTA NEGATIVE (< 300 ng/mL); PCP Urine VISTA NEGATIVE (< 25 ng/mL); THC Urine VISTA NEGATIVE (< 50 ng/mL); Vista UDS pH Range 4
== END | disposition home or self-care (01) ==
LOC: LAB 15:50
PROVIDERS: PCP Internal Medicine; Referring Provider Anesthesiology Pain Medicine; Visit Provider Anesthesiology Pain Medicine
DX: F11.20 Opioid dependence, uncomplicated (principal)
CPT/HCPCS: 80307

== ENCOUNTER → 2022-08-13 | Outpatient (CLI) | payer MEDICARE, SELFPAY ==
[2022-08-13 16:33] LABS: Amphetamine Urine VISTA NEGATIVE (<1000 ng/mL); Barbiturate Urine VISTA NEGATIVE (< 200 ng/mL); Benzodiazepine Urine VISTA NEGATIVE (< 200 ng/mL); Cocaine Urine VISTA NEGATIVE (< 300 ng/mL); Ecstacy Urine VISTA NEGATIVE (< 500 ng/mL); Methadone Urine VISTA NEGATIVE (< 300 ng/mL); PCP Urine VISTA NEGATIVE (< 25 ng/mL); THC Urine VISTA NEGATIVE (< 50 ng/mL); Vista UDS pH Range 5
== END | disposition home or self-care (01) ==
LOC: LAB 14:36
PROVIDERS: PCP Internal Medicine; Referring Provider Anesthesiology Pain Medicine; Visit Provider Anesthesiology Pain Medicine
DX: F11.20 Opioid dependence, uncomplicated (principal)
CPT/HCPCS: 80307